=== PATIENT | male | born 1980 | race Caucasian/White ===

== ENCOUNTER → 2021-12-01 12:31 | Outpatient (CLI) | payer OTHER, SELFPAY ==
--- NOTE | ~2021-12-01 | MR_ITS ---
EXAMINATION: MR shoulder LT w con DATE: 12/01/2021 15:00 INDICATION: Labral tear. Left shoulder pain. TECHNIQUE: Magnetic resonance imaging (MRI) of the left shoulder was performed without intravenous co ntrast after intra-articular injection of contrast (MR arthrogram). COMPARISON: None. FINDINGS: Coracoacromial arch: The acromion undersurface is flat in morphology (type I). There is severe acromioclavicular joint ost eoarthritis including inferior directed osteophytes. There is mild subacromial/subdeltoid bursitis. Rotator cuff: There is an interstitial tear at the junction of supraspinatus and infraspinatus tendons measuring 5 mm anterior to posterior by 2 mm proximal to distal by 60% tendon thickness. Teres minor tendon is no rmal. There is mild subscapularis tendinopathy. There is no asymmetric fatty atrophy of the rotator c uff muscle bellies. Biceps tendon and glenoid labrum: Biceps tendon is in bicipital groove. Intra-articular biceps tendon is normal. There is a tear of sup erior labrum from 10:30 to 12:00 (SLAP tear). In the anterosuperior quadrant, a sublabral foramen and sublabral sulcus may be a normal variant. Fluid: The glenohumeral joint is well distended by contrast. Bones/cartilage: Glenoid cartilage is normal. Humeral head cartilage is normal. IMPRESSION: 1. SLAP tear. 2. Partial thickness rotator cuff tear. 3. Severe acromioclavicular joint osteoarthritis. 4. Mild subacromial/subdeltoid bursitis. Reviewed, dictated and finalized at location A.
--- NOTE | ~2021-12-01 | MR_ITS ---
EXAMINATION: MR shoulder RT w con DATE: 12/01/2021 14:10 INDICATION: Right shoulder pain. Labral tear. TECHNIQUE: Magnetic resonance imaging (MRI) of the right shoulder was performed without intravenous c ontrast after intra-articular injection of contrast (MR arthrogram). COMPARISON: None. FINDINGS: Coracoacromial arch: The acromion undersurface is curved in morphology (type II). There is mild acromioclavicular joint os teoarthritis. There is mild subacromial/subdeltoid bursitis. Rotator cuff: There is mild supraspinatus and infraspinatus tendinopathy. Teres minor tendon is normal. There is mi ld subscapularis tendinopathy. Contrast in the subscapularis tendon is iatrogenic. No tear. There is no asymmetric fatty atrophy of the rotator cuff muscle bellies. Biceps tendon and glenoid labrum: Biceps tendon is in bicipital groove. Intra-articular biceps tendon is normal. There is a tear of sup erior labrum from 10:00 to 1:00 (SLAP tear). Fluid: The glenohumeral joint is well distended by contrast. Bones/cartilage: The glenoid cartilage is normal. Humeral head cartilage is normal. IMPRESSION: 1. SLAP tear. 2. Mild rotator cuff tendinopathy. No tear. 3. Mild acromioclavicular joint osteoarthritis. 4. Mild subacromial/subdeltoid bursitis. Reviewed, dictated and finalized at location A.
--- NOTE | ~2021-12-01 | XR_ITS ---
XR fl inj shoulder RT - MR/CT, XR fl inj shoulder LT - MR/CT DATE: 12/01/2021 14:14 (accession [id number]), 12/01/2021 14:36 (accession [id number]) INDICATION: Labral tear. Bilateral shoulder pain. TECHNIQUE: The purpose of the procedures, technique were discussed with the patient. The patient verb alized understanding and gave consent. Timeout procedure confirmed proper patient and procedure. Bilateral shoulder joint injections were made, separately, each performed prior to MR shoulder examin ation of that side. Each time the skin along the anterior aspect of the shoulder was prepared with sterile technique. Loc al anesthesia was administered with 1% lidocaine. 22-gauge spinal needle was introduced into the glenohumeral joint space from an anterior approach int o the glenohumeral joint space under fluoroscopic visualization. 12 CC mixed multi-Ban, Omnipaque a nd lidocaine injection was made into each shoulder joint. An anteroposteriorly image post contrast injection of each shoulder was saved. The patient tolerated the procedure very well, without complaint or apparent complication. IMPRESSION: Successful pre- MRI intra-articular injection of MR contrast material into each shoulder Reviewed, dictated and finalized at Location [facility]. Reviewed, dictated and finalized at location B. IMPRESSION: Successful pre- MRI intra-articular injection of MR contrast materi al into each shoulder
== END ==
PROVIDERS: PCP Pediatrics
DX: S43.432A Superior glenoid labrum lesion of left shoulder, initial encounter (principal); S43.431A Superior glenoid labrum lesion of right shoulder, initial encounter; X58.XXXA Exposure to other specified factors, initial encounter; M19.011 Primary osteoarthritis, right shoulder; M75.51 Bursitis of right shoulder; M19.012 Primary osteoarthritis, left shoulder; M75.52 Bursitis of left shoulder
CPT/HCPCS: 23350; 73222; 77002; A9577; Q9967